=== PATIENT | male | born 1955 | race Caucasian/White ===

== ENCOUNTER 2016-07-09 11:33 | Emergency (ER) | payer OTHER, MEDICARE ==
[~2016-07-09] VITALS: Ht 162.6 cm; Wt 74.8 kg
[~2016-07-09 11:33] MED LIST: ALBUTEROL0.09 MG/A1 INH; ANORO ELLIPTA1 POW INH; ASPIRIN EC325 MG PO; ATROVENT 0.02%2.5 ML INH; DIVALPROEX SOD500 M1; FINASTERIDE5 MG PO; INVEGA9 M1 PO; INVEGA9 MG PO; LIORESAL 10MG T10 MG PO; LITHIUM CARBON300 M3 PO; LITHIUM CARBON600 MG PO; MOBIC15 MG PO; PREDNISONE 10MG10 M1 PO; PREDNISONE 20MG20 MG PO; PRILOSEC10 MG PO; PRILOSEC20 MG PO; RISPERDAL CONST25 MG; SEREVENT D0.046 MG/A; SYMBICORT 160/41 PUF INH; SYMBICORT 80/4.1 PUF INH; SYSTANE BALANCE10 ML OPH; TAMSULOSIN HYD0.4 MG PO; TESSALON PERLE100 MG PO; THIOTHIXENE10 MG PO; THIOTHIXENE2 MG PO; THIOTHIXENE5 MG PO; TRIHEXYPHENIDYL2 M1 PO; TRIHEXYPHENIDYL2 MG PO; ZITHROMAX Z-PA250 M1 PO
[2016-07-09 11:41] VITALS: BP 144/98
--- NOTE | 2016-07-09 12:26 | ED DYSPNEA/ASTHMA COMPLAINT ---
History of Present Illness General Chief Complaint: General Adult Stated Complaint: BIBA COUGHING UP BLOOD Source: patient, old records Exam Limitations: no limitations Vital Signs & Intake/Output Vital Signs & Intake/Output Vital Signs Date Time Temp Pulse Resp B/P Pulse O2 O2 Flow FiO2 Ox Delivery Rate 07/09 1305 96 Room Air 07/09 1141 99.2 110 20 144/98 94 Room Air Allergies Coded Allergies: esomeprazole (From NEXIUM) (VOMITING 08/23/15) fluphenazine (UNKNOWN 08/23/15) olanzapine (UNKNOWN 08/23/15) petrolatum,white (From PETROLEUM JELLY) (UNKNOWN REACTION TO VASELINE 08/23/15) ranitidine (From ZANTAC) (VOMITING 08/23/15) Uncoded Allergies: STOMACH (UNKNOWN 08/23/15) Reconcile Medications Amoxicillin/Potassium Clav (Augmentin 875-125 Tablet) 875 MG-125 MG TABLET 1 TAB PO BID PNA Aspirin E.c. (Ecotrin) 325 MG TAB 1 TAB PO TID PAIN/HEADACHES (Reported) Budesonide/Formoterol Fumara (Symbicort 160-4.5 Mcg Inhaler) 160 MCG/4.5 MCG PUF 2 PUF INH BID MENTAL HEALTH (Reported) Finasteride 5 MG TABLET 1 TAB PO QAM PROSTATE (Reported) Omeprazole (Prilosec) 20 MG ECC 1 CAP PO QHS GI (Reported) Paliperidone (Invega) 9 MG TAB.ER.24 1 TAB PO QAM MENTAL HEALTH (Reported) Propylene Glycol (Systane Balance 10 Ml) 0.6 % DROPS 1 DROP OPH PRN EYE LUBRICANT (Reported) TAMSULOSIN HCL (Tamsulosin Hydrochloride) 0.4 MG CAP 1 CAP PO DAILY PROSTATE (Reported) Thiothixene 2 MG CAP 1 CAP PO BID MENTAL HEALTH (Reported) Triage Note: PT STATES THE HEAT WENT OUT IN HIS APARTMENT AND NOW HE IS COUGHING UP BLOOD TINGED SPUTUM. STATES THE SIZE OF A QUARTER. STATES HIS STOMACK IS SICK AND HE HASN'T EATEN Triage Nurses Notes Reviewed? yes HPI: 61-year-old male with multiple medical problems, psychiatric history, well-known to this department for multiple visits, here with multiple medical complaints. He states that he is here because he had an episode of coughing and coughed up a quarter-sized amount of blood with sputum this morning. He has history of COPD. He denies any shortness of breath or chest pain. No History of smoking. He denies fever or flulike illness. He has no leg swelling or edema. He states that this morning he went for a walk around 7 AM and his legs were sore after the walk and he took 2 aspirin, about 2 hours after he had a coughing episode and coughed up a quarter-sized amount of blood/blood-tinged sputum. He has not had any symptoms since. He states that the coughing episode has affected him so much that he was unable to masturbate this morning. He states he masturbates every morning to promote prostate health and was unable to do so this morning. He denies any urinary symptoms. He has no history of same. Past History Travel History Traveled to [place] past 21 day No Medical History Any Pertinent Medical History? 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 No Review of Systems Review of Systems Constitutional: Reports: see HPI. EENTM: Reports: no symptoms. Respiratory: Reports: see HPI, cough, hemoptysis. Cardiovascular: Reports: no symptoms. GI: Reports: no symptoms. Genitourinary: Reports: no symptoms. Musculoskeletal: Reports: no symptoms. Skin: Reports: no symptoms. Neurological/Psychological: Reports: no symptoms. Hematologic/Endocrine: Reports: no symptoms. Immunologic/Allergic: Reports: no symptoms. All Other Systems: Reviewed and Negative Physical Exam Physical Exam Respiratory: normal breath sounds, chest non-tender, no respiratory distress Cardiovascular: regular rate/rhythm Comments: Well-developed well-nourished no apparent distress. HEENT: Atraumatic, extraocular motion intact Neck: Supple, no lymphadenopathy Back: Nontender Respiratory: No respiratory distress Extremities: No edema, full range of motion Neuro: Alert and oriented x3 Psych: Mood affect normal, normal memory normal judgment. Skin: Warm and dry, no rash on exposed skin Core Measures ACS in differential dx? No Severe Sepsis Present: No Septic Shock Present: No Progress Differential Diagnosis: asthma, AMI, altitude sickness, bronchitis, costochondritis, CHF, COPD, musculoskeletal pain, pericarditis, pulmonary embolism, pneumonia, pneumothorax, rib fracture, unstable angina Plan of Care: Orders Procedure Date/time Status XRY-CHEST XRAY, PA AND LATERAL 07/09 1217 Active Diagnostic Imaging: Viewed by Me: Radiology Read. Discussed w/RAD: Radiology Read. CXR Impression: PATIENT: OXANA JUAREZ PRESENT AGE: 61 PATIENT ACCOUNT NO: [id number] : 55 LOCATION: [facility] ORDERING PHYSICIAN: JEN HINOJOSA SERVICE DATE: 07/09/16 EXAM TYPE: RAD - XRY-CHEST XRAY, PA AND LATERAL EXAMINATION: XR CHEST CLINICAL INFORMATION: Cough, COPD. Mild bloody sputum. COMPARISON: 12/29/2015 TECHNIQUE: 2 views of the chest were obtained. FINDINGS: The lungs are hyperexpanded. There is increased opacity at the left midlung. No pleural effusion or pneumothorax. The cardiomediastinal silhouette is unchanged. Degenerative changes of the spine with kyphotic appearance of the thoracic spine. IMPRESSION: Findings consistent with known COPD. Increased left midlung opacity may represent pneumonia in this setting. 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 Given patient's history of COPD , hemoptysis, mildly elevated temperature and heart rate, I believe this is a true pneumonia and we will treat with Augmentin. This is discussed with patient. He should follow up with his primary care doctor in the next few days or return here with worsening symptoms. I do not feel he requires admission for this at this time. Departure Departure Disposition: HOME OR SELF CARE Condition: Stable Clinical Impression Primary Impression: Pneumonia Qualifiers: Pneumonia type: due to unspecified organism Laterality: left Lung location: lower lobe of lung Qualified Code: J18.1 - Lobar pneumonia, unspecified organism Referrals: AC HAYNES,JEREMY Arreola (PCP/Family) Additional Instructions: Take antibiotics for your infection as directed. Use [id number] multisystem cold medication as needed. Motrin and Tylenol as needed for fever. Drink plenty of fluids. Return or follow-up with your doctor if not better in the next 3-5 days or if you're having continued worsening fevers, nausea, vomiting, shortness of breath, abdominal pain, difficulty swallowing or drinking or worsening flulike illness. Departure Forms: Customer Survey General Discharge Information Prescriptions: Current Visit Scripts Amoxicillin/Potassium Clav (Augmentin 875-125 Tablet) 1 TAB PO BID #14 TAB Critical Care Note Critical Care Note Critical Care Time: non-applicable
--- NOTE | 2016-07-09 12:35 | RADIOLOGY REPORT ---
EXAMINATION: XR CHEST CLINICAL INFORMATION: Cough, COPD. Mild bloody sputum. COMPARISON: 12/29/2015 TECHNIQUE: 2 views of the chest were obtained. FINDINGS: The lungs are hyperexpanded. There is increased opacity at the left midlung. No pleural effusion or pneumothorax. The cardiomediastinal silhouette is unchanged. Degenerative changes of the spine with kyphotic appearance of the thoracic spine. IMPRESSION: Findings consistent with known COPD. Increased left midlung opacity may represent pneumonia in this setting.
[2016-07-09] MEDS ORDERED: AUGMENTIN 875-1 EACH PO (12:59)
== END 2016-07-09 13:05 ==
LOC: ERH 11:33
DX: J18.9 Pneumonia, unspecified organism (principal); Z87.891 Personal history of nicotine dependence

== ENCOUNTER 2016-07-31 13:35 | Emergency (ER) | payer OTHER, MEDICARE ==
[~2016-07-31] VITALS: Ht 162.6 cm; Wt 72.6 kg
[~2016-07-31 13:35] MED LIST changes: +AUGMENTIN 875-1 EACH PO
[2016-07-31 13:43] VITALS: BP 140/87
--- NOTE | 2016-07-31 15:00 | ED UPPER/LOWER EXTREMITY COMPL ---
History of Present Illness General Chief Complaint: Low Back Pain/Injury Stated Complaint: LOWER LEG PAIN Source: patient Exam Limitations: no limitations Vital Signs & Intake/Output Vital Signs & Intake/Output Vital Signs Date Time Temp Pulse Resp B/P B/P Pulse O2 O2 Flow FiO2 Mean Ox Delivery Rate 07/31 1343 97.5 86 16 140/87 94 Room Air Allergies Coded Allergies: esomeprazole (From NEXIUM) (VOMITING 08/23/15) fluphenazine (UNKNOWN 08/23/15) olanzapine (UNKNOWN 08/23/15) petrolatum,white (From PETROLEUM JELLY) (UNKNOWN REACTION TO VASELINE 08/23/15) ranitidine (From ZANTAC) (VOMITING 08/23/15) Uncoded Allergies: STOMACH (UNKNOWN 08/23/15) Reconcile Medications Amoxicillin/Potassium Clav (Augmentin 875-125 Tablet) 875 MG-125 MG TABLET 1 TAB PO BID PNA Aspirin E.c. (Ecotrin) 325 MG TAB 1 TAB PO TID PAIN/HEADACHES (Reported) Budesonide/Formoterol Fumara (Symbicort 160-4.5 Mcg Inhaler) 160 MCG/4.5 MCG PUF 2 PUF INH BID MENTAL HEALTH (Reported) Finasteride 5 MG TABLET 1 TAB PO QAM PROSTATE (Reported) Omeprazole (Prilosec) 20 MG ECC 1 CAP PO QHS GI (Reported) Paliperidone (Invega) 9 MG TAB.ER.24 1 TAB PO QAM MENTAL HEALTH (Reported) Propylene Glycol (Systane Balance 10 Ml) 0.6 % DROPS 1 DROP OPH PRN EYE LUBRICANT (Reported) TAMSULOSIN HCL (Tamsulosin Hydrochloride) 0.4 MG CAP 1 CAP PO DAILY PROSTATE (Reported) Thiothixene 2 MG CAP 1 CAP PO BID MENTAL HEALTH (Reported) Triage Note: PT TO ER VIA AMBULANCE WITH COMPLAINTS OF BILATERAL LEG PAIN. PT STATES THAT HE HAS HAD LEG PAIN SINCE HE WAS 21 AND THAT HE THOUGHT HIS DOCTOR WAS GOING TO CALL IN AN XRAY AND THAT HE TOOK THE AMBULANCE DUE TO HE HAD NO RIDE. RADIOLOGY CALLED AND CONFIRMED THAT THERE IS NO OUT PT ORDER Triage Nurses Notes Reviewed? yes Onset: Gradual Duration: worse persistent since (couple weeks) Timing: recent history Severity: moderate Severity Numbers: 6 Pain/Injury Location: Bilateral: Knee. Method of Injury: unknown No Modifying Factors: none HPI: Is a 61-year-old male with history of knee pain presenting to the emergency department to complaint of worsening knee pain over the past couple weeks. Pain is achy throbbing worse with ambulation. Hasn't taking his daily medications with little relief. He called his primary care physician and he told her to come to the emergency department for evaluation and x-rays. Denies any trauma or falls. No numbness or tingling. (MARY CIFUENTES) Past History Travel History Traveled to [place] past 21 day No Medical History Any Pertinent Medical History? 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 No (MARY CIFUENTES) Review of Systems Review of Systems Constitutional: Reports: no symptoms. Comments Review of systems: See HPI, All other systems negative. Constitutional, no chills fever or weight loss HEENT: No visual changes no sore throat no congestion Cardiovascular: No chest pain ,palpitation Skin, no jaundice no rashes Respiratory: No dyspnea cough sputum or hemoptysis GI: No nausea no vomiting : No dysuria No hematuria Muscle skeletal: no back pain, no neck pain, Neurologic: No numbness no confusion Psych: No stress anxiety or depression,. Heme/endocrine: No bruising no bleeding no polyuria or polydipsia Immunology: No splenectomy or history of AIDS (MARY CIFUENTES) Physical Exam Physical Exam General Appearance: well developed/nourished, no apparent distress, alert, awake , comfortable Comments: Well-developed well-nourished no apparent distress. HEENT: Atraumatic, extraocular motion intact Neck: normal inspection Back: Nontender Respiratory: No respiratory distress Extremities: No edema, mild tenderness to palpation over the patella tendons bilaterally. No erythema or warmth to palpation over the patellas. Full range of motion of patellas bilaterally. No pain to palpation over calf bilaterally. Pedal pulses are 2+ bilaterally. Neuro: Alert and oriented x3 Psych: Mood affect normal, normal memory normal judgment. (MARY CIFUENTES) Progress Differential Diagnosis: contusion, dislocation, fracture, gout, sprain, tendon injury, bone spur Plan of Care: Orders Procedure Date/time Status XRY-KNEE COMPLETE RIGHT 07/31 1499 Active XRY-KNEE COMPLETE LEFT 07/31 1499 Active Diagnostic Imaging: Viewed by Me: Radiology Read. Discussed w/RAD: Radiology Read. Radiology Impression: PATIENT: OXANA JUAREZ PRESENT AGE: 61 PATIENT ACCOUNT NO: [id number] : 55 LOCATION: [facility] ORDERING PHYSICIAN: MARY HINOJOSA SERVICE DATE: 07/31/16 EXAM TYPE: RAD - XRY-KNEE COMPLETE LEFT; XRY-KNEE COMPLETE RIGHT EXAMINATION: XR KNEE, LEFT XR KNEE, RIGHT CLINICAL INFORMATION: Knee pain. Rule out acute process/arthritis. COMPARISON: None TECHNIQUE: AP, lateral, and both oblique views of each knee. FINDINGS: LEFT KNEE: No fracture or malalignment. Joint spaces are well- preserved. Tiny patellar osteophytes. Enthesopathic spurring is present at the quadriceps tendon insertion on the patella and at the patellar tendon insertion on the tibia. Calcific atherosclerosis is present in the popliteal and runoff arteries. Bones are osteopenic. RIGHT KNEE: No fracture or malalignment. Tiny marginal osteophytes are present at the patella. Joint spaces well-preserved. No effusion. Bones are osteopenic. Calcific atherosclerosis is present at the popliteal artery. These right spurring is present at the quadriceps tendon insertion on the patella. IMPRESSION: 1. No acute osseous abnormalities in the knees. 2. Minimal patellofemoral degenerative arthritis. 3. Enthesopathic spurs at the quadriceps tendon insertions and at the left patellar tendon insertion. (MARY CIFUENTES) Departure Departure Time of Disposition: 155 Disposition: HOME OR SELF CARE Condition: Stable Clinical Impression Primary Impression: Arthritis Referrals: AC HAYNES,JEREMY Arreola (PCP/Family) TANGELA HAYNES,ALBER Underwood Additional Instructions: follow up with orthopedics call to make an appointment. Rest ice and elevate. Return for worsening symptoms or concerns. Continue taking daily medication as prescribed. 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 I have also reviewed all the pertinent lab results and diagnostic results. I agree with the findings and the plan of care as documented in the PA's/MODEL AND PATTERN SUPERVISOR's documentation. [X] I have reviewed the ED Record and agree with the PA's/MODEL AND PATTERN SUPERVISOR's documentation. [] Additions or exceptions (if any) to the PAs/MODEL AND PATTERN SUPERVISOR's note and plan are summarized below: [] (NAKUL HAYNES,KENA)
--- NOTE | 2016-07-31 15:38 | RADIOLOGY REPORT ---
EXAMINATION: XR KNEE, LEFT XR KNEE, RIGHT CLINICAL INFORMATION: Knee pain. Rule out acute process/arthritis. COMPARISON: None TECHNIQUE: AP, lateral, and both oblique views of each knee. FINDINGS: LEFT KNEE: No fracture or malalignment. Joint spaces are well-preserved. Tiny patellar osteophytes. Enthesopathic spurring is present at the quadriceps tendon insertion on the patella and at the patellar tendon insertion on the tibia. Calcific atherosclerosis is present in the popliteal and runoff arteries. Bones are osteopenic. RIGHT KNEE: No fracture or malalignment. Tiny marginal osteophytes are present at the patella. Joint spaces well-preserved. No effusion. Bones are osteopenic. Calcific atherosclerosis is present at the popliteal artery. These right spurring is present at the quadriceps tendon insertion on the patella. IMPRESSION: 1. No acute osseous abnormalities in the knees. 2. Minimal patellofemoral degenerative arthritis. 3. Enthesopathic spurs at the quadriceps tendon insertions and at the left patellar tendon insertion.
== END 2016-07-31 15:53 ==
LOC: ERH 13:35
DX: M17.0 Bilateral primary osteoarthritis of knee (principal)
CPT/HCPCS: 73562-LT; 73562-RT

== ENCOUNTER 2016-10-21 13:42 | Emergency (ER) | payer OTHER, MEDICARE ==
[~2016-10-21] VITALS: Ht 162.6 cm; Wt 77.1 kg
--- NOTE | 2016-10-21 15:09 | ED GENERAL ADULT ---
History of Present Illness General Chief Complaint: General Adult Stated Complaint: BIBA PER EMS HIGH BP 200/118, LIGHT HEADED Source: patient Exam Limitations: no limitations Vital Signs & Intake/Output Vital Signs & Intake/Output Vital Signs Date Time Temp Pulse Resp B/P B/P Pulse O2 O2 Flow FiO2 Mean Ox Delivery Rate 10/21 1639 98.4 84 20 130/60 99 Room Air 10/21 1348 98.6 96 18 155/84 98 Room Air Allergies Coded Allergies: esomeprazole (From NEXIUM) (VOMITING 08/23/15) fluphenazine (UNKNOWN 08/23/15) olanzapine (UNKNOWN 08/23/15) petrolatum,white (From PETROLEUM JELLY) (UNKNOWN REACTION TO VASELINE 08/23/15) ranitidine (From ZANTAC) (VOMITING 08/23/15) Uncoded Allergies: STOMACH (UNKNOWN 08/23/15) Reconcile Medications Albuterol Sulfate 2.5 MG/3 ML (0.083 %) VIAL.NEB 1 Vial INH/JACQUES Q4P PRN SOB/ WHEEZE (Reported) Albuterol Sulfate (Ventolin Hfa) 90 MCG HFA.AER.AD 2 PUF INH Q4H PRN COPD ( Reported) Amlodipine Besylate 10 MG TABLET 1 TAB PO QPM BP (Reported) Aspirin/Caffeine (Analgesic Tablet) (Unknown Strength) TABLET (Unknown Dose) PO DAILY PAIN (Reported) Benztropine Mesylate 0.5 MG TABLET 1 TAB PO QAM MENTAL HEALTH (Reported) Carboxymethylcellulos/Glycerin (Refresh Optive Eye Drops) 0.5 %-0.9 % DROPS 1 GTT OU BID BOTH EYES - DRY EYES (Reported) Finasteride 5 MG TABLET 1 TAB PO QPM PROSTATE (Reported) Haloperidol 5 MG TABLET 15 MG PO QPM MENTAL HEALTH (Reported) Ibuprofen (Motrin Ib) 200 MG TABLET 5 TAB PO PRN PAIN (Reported) Ipratropium [place] 0.2 MG/ML (0.02 %) SOLUTION 1 Vial INH/JACQUES Q4H PRN SOB/ WHEEZE (Reported) Omeprazole 20 MG CAPSULE.DR 1 CAP PO QPM GI (Reported) Tiotropium Br/Olodaterol HCl (Stiolto Respimat Inhal [place]) 2.5 MCG-2.5 MCG/ ACTUATION MIST.INHAL 2 PUFF INH DAILY COPD (Reported) Trazodone HCl 50 MG TABLET 0.5 TAB PO QHS PRN SLEEP (Reported) Triage Note: 61 YO MALE BIBA TO TRIAGE. STATES "I DID TO MUCH OVER THE WEKEEND" STATES HE WOKE UP THIS AM WITH A HEADAHCE. STATES "I POURED ICE ON MY HEAD TO TRY TO HELP" Triage Nurses Notes Reviewed? 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 Patient called EMS for persistent symptoms when he was brought in by ambulance. Patient does state that he has a history of COPD however he is not on home O2. Denies any fever chills headache neck pain neck stiffness blurred vision chest pain shortness of breath cough and arm pain jaw pain nausea vomiting leg swelling hemoptysis Patient is able to tolerate by mouth Denies any room spinning sensation. (LORRIE PEREZ) Past History Travel History Traveled to [place] past 21 day No Medical History Any Pertinent Medical History? 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 No (LORRIE PEREZ) Review of Systems Review of Systems Constitutional: Reports: see HPI, weakness. EENTM: Reports: no symptoms. Respiratory: Reports: see HPI, short of breath. Cardiovascular: Reports: no symptoms. GI: Reports: no symptoms. Genitourinary: Reports: no symptoms. Musculoskeletal: Reports: no symptoms. Skin: Reports: no symptoms. Neurological/Psychological: Reports: no symptoms. Hematologic/Endocrine: Reports: no symptoms. Immunologic/Allergic: Reports: no symptoms. All Other Systems: Reviewed and Negative (LORRIE PEREZ) Physical Exam Physical Exam General Appearance: no apparent distress, comfortable Comments: Well-developed well-nourished person in no acute distress HEENT: Normal EENT exam, extraocular motion intact, no nystagmus. Pupils equally round and reactive to light and accommodation. Nose is atraumatic. External auditory canal and Tympanic membranes clear. Pharynx normal. No swelling or edema. Neck: Supple, no lymphadenopathy, normal range of motion without pain or tenderness Back: Nontender, no CVA tenderness. Cardiovascular: Regular rate and rhythms no murmurs rubs or gallops, normal JVP Respiratory: Chest nontender. No respiratory distress.breath sounds clear to auscultation bilaterally Abdomen: Soft, nontender nondistended, no appreciable organomegaly. Normal bowel sounds. No ascites Extremity: No edema, no calf tenderness to palpation, normal and equal pulses. Neuro: Alert oriented x3, motor sensory normal, Skin: No appreciable rash on exposed skin, skin is warm and dry. Psych: Mood and affect is normal, memory and judgment is normal. Core Measures ACS in differential dx? No CVA/TIA Diagnosis: No Severe Sepsis Present: No Septic Shock Present: No (ELDA HINOJOSA,LORRIE) Progress Differential Diagnoses I considered the following diagnoses in my evaluation of the patient: [ Myocardial infarction, CVA, PE, sepsis, upper respiratory infection, dehydration , electrolyte abnormality, COPD TIA,] Plan of Care: Orders Procedure Date/time Status TROPONIN LEVEL 10/21 1517 Complete COMPREHENSIVE METABOLIC PANEL 10/21 1517 Complete CBC WITHOUT DIFFERENTIAL 10/21 1517 Complete EKG 10/21 1517 Active Laboratory Tests 10/21/16 1530: Anion Gap 13, Estimated GFR > 60, BUN/Creatinine Ratio 15.7, Glucose 94, Calcium 9.7, Total Bilirubin 0.5, AST 25, ALT 35, Alkaline Phosphatase 95, Troponin I < 0.01, Total Protein 7.6, Albumin 4.8, Globulin 2.8, Albumin/Globulin Ratio 1.7, CBC w Diff NO MAN DIFF REQ, RBC 5.11, MCV 90.9, MCH 30.4, RDW 12.8, MPV 7.2 L, Gran % 64.4, Lymphocytes % 26.3, Monocytes % 6.4, Eosinophils % 2.0, Basophils % 0.9, Absolute Granulocytes 5.2, Absolute Lymphocytes 2.1, Absolute Monocytes 0.5 , Absolute Eosinophils 0.2, Absolute Basophils 0.1, PUBS MCHC 33.5 Patient on initial examination was in no apparent distress. Patient has unremarkable physical exam findings. Clear lungs auscultation patient is noted to be ambulating to the restroom showing steady gait and no respiratory complaints. Patient has unremarkable EKG blood work and chest x-ray. Patient again was ambulating in no apparent distress no respiratory distress. It was noted that patient ambulate down the emergency room always 95% room air no respiratory distress clear lungs auscultation and was talking excessively the entire time. There is no concerns of pulmonary embolism (LORRIE PEREZ) Diagnostic Imaging: Viewed by Me: Radiology Read. CXR Impression: no acute abnormality, no infiltrates Initial ED EKG: normal intervals, normal p-waves, normal QRS complex, 82 BPM, NSR Comments: PATIENT: OXANA JUAREZ PRESENT AGE: 61 PATIENT ACCOUNT NO: [id number] : 55 LOCATION: [facility] ORDERING PHYSICIAN: LORRIE HINOJOSA SERVICE DATE: 10/21/16 EXAM TYPE: RAD - XRY-CHEST XRAY, PA AND LATERAL EXAMINATION: XR CHEST CLINICAL INFORMATION: Shortness of breath. COMPARISON: Chest radiograph 07/09/2016. TECHNIQUE: 2 views of the chest were obtained. FINDINGS: There is severe emphysema primarily involving the upper lobes of both lungs. No evidence of overt consolidative disease or effusion. No pneumothorax. The cardiac silhouette and upper mediastinal contours are normal. No acute osseous finding. IMPRESSION: Stable chronic changes with severe emphysema primarily involving the upper lobes of both lungs. No overt consolidative disease or effusion. DICTATED BY: KAYLA GUTHRIE MD DATE/TIME DICTATED:10/21/161599 (LORRIE PEREZ) Departure Departure Disposition: HOME OR SELF CARE Condition: Stable Clinical Impression Primary Impression: Dizziness Referrals: AC HAYNES,JEREMY Arreola (PCP/Family) Additional Instructions: As discussed please try to limit the use of coffee ingestion. Begin drinking plenty of water for hydration. Continue home medications as directed. If symptoms worsen or if YOU develop a NEW concerning symptom return to emergency room. Follow-up with primary care doctor on Wednesday if no better Departure Forms: Customer Survey General Discharge Information (LORRIE PEREZ) PA/DIRECTOR MEDICARE SALES Co-Sign Statement Statement: ED Attending supervision documentation- x I saw and evaluated the patient. I have also reviewed all the pertinent lab results and diagnostic results. I agree with the findings and the plan of care as documented in the PA's/DIRECTOR MEDICARE SALES's documentation. [] I have reviewed the ED Record and agree with the PA's/DIRECTOR MEDICARE SALES's documentation. [] Additions or exceptions (if any) to the PAs/DIRECTOR MEDICARE SALES's note and plan are summarized below: [] (DAVID HAYNES,MARK) Critical Care Note Critical Care Note Critical Care Time: non-applicable (ELDA HINOJOSA,LORRIE)
[2016-10-21 15:40] LABS: ABSOLUTE BASOPHIL COUNT 0.1 /CUMM (0.0-0.2); ABSOLUTE EOSINOPHIL COUNT 0.2 /CUMM (0.0-0.7); ABSOLUTE GRANULOCYTE CT 5.2 /CUMM (1.4-6.5); ABSOLUTE LYMPH COUNT 2.1 /CUMM (1.2-3.4); ABSOLUTE MONOCYTE COUNT 0.5 /CUMM (0.10-0.60); BASOPHIL % 0.9 % (0.0-2.0); GRANULOCYTE % 64.4 % (42.2-75.2); HEMATOCRIT 46.4 % (42-52); MEAN CORPUSCULAR HGB 30.4 PG (27.0-31.0); MEAN CORPUSCULAR HGB CONC 33.5 G/DL (33.0-37.0); MEAN CORPUSCULAR VOLUME 90.9 FL (80.0-94.0); MEAN PLATELET VOLUME 7.2 FL (7.4-10.4); PLATELET COUNT 253 /CUMM (130-400); RBC DISTRIBUTION WIDTH 12.8 % (11.5-14.5); RED BLOOD CELL CT 5.11 /CUMM (4.70-6.10); WHITE BLOOD CELL COUNT 8.1 /CUMM (4.8-10.8)
[2016-10-21] MEDS ORDERED: HALOPERIDOL5 MG PO (16:00)
[2016-10-21] MEDS ORDERED: REFRESH OPTIVE15 M1 OU (16:00)
[2016-10-21] MEDS ORDERED: FINASTERIDE5 M1 PO (16:01)
[2016-10-21] MEDS ORDERED: ALBUTEROL2.5 MG/3 M INH/SOL (16:01)
[2016-10-21] MEDS ORDERED: IPRATROPIU0.2 MG/1 M INH/SOL (16:01)
[2016-10-21] MEDS ORDERED: OMEPRAZOLE20 M2 PO (16:02)
[2016-10-21] MEDS ORDERED: AMLODIPINE BESY10 M1 PO (16:02)
[2016-10-21] MEDS ORDERED: TRAZODONE HCL50 M1 PO (16:02)
[2016-10-21] MEDS ORDERED: STIOLTO RESPIMAT4 GM INH (16:03)
[2016-10-21] MEDS ORDERED: VENTOLIN HFA18 GM INH (16:03)
[2016-10-21] MEDS ORDERED: BENZTROPINE ME0.5 M1 PO (16:04)
[2016-10-21] MEDS ORDERED: MOTRIN IB200 M1 PO (16:05)
--- NOTE | 2016-10-21 16:06 | RADIOLOGY REPORT ---
EXAMINATION: XR CHEST CLINICAL INFORMATION: Shortness of breath. COMPARISON: Chest radiograph 07/09/2016. TECHNIQUE: 2 views of the chest were obtained. FINDINGS: There is severe emphysema primarily involving the upper lobes of both lungs. No evidence of overt consolidative disease or effusion. No pneumothorax. The cardiac silhouette and upper mediastinal contours are normal. No acute osseous finding. IMPRESSION: Stable chronic changes with severe emphysema primarily involving the upper lobes of both lungs. No overt consolidative disease or effusion.
[2016-10-21] MEDS ORDERED: [UNRECOGNIZED DRUG - OTHER] PO (16:07)
[2016-10-21 16:39] VITALS: BP 130/60
== END 2016-10-21 16:58 ==
LOC: ERH 13:42
PROVIDERS: Physician Assistant
DX: R42 Dizziness and giddiness (principal)
CPT/HCPCS: 93005; 93010

== ENCOUNTER 2017-04-30 10:07 | Emergency (ER) | payer OTHER, MEDICARE ==
[~2017-04-30] VITALS: Ht 162.6 cm; Wt 81.6 kg
[~2017-04-30 10:07] MED LIST changes: +ALBUTEROL2.5 MG/3 M INH/SOL; +AMLODIPINE BESY10 M1 PO; +BENZTROPINE ME0.5 M1 PO; +FINASTERIDE5 M1 PO; +HALOPERIDOL5 MG PO; +IPRATROPIU0.2 MG/1 M INH/SOL; +MOTRIN IB200 M1 PO; +OMEPRAZOLE20 M2 PO; +REFRESH OPTIVE15 M1 OU; +STIOLTO RESPIMAT4 GM INH; +TRAZODONE HCL50 M1 PO; +VENTOLIN HFA18 GM INH; +[UNRECOGNIZED DRUG - OTHER] PO
[2017-04-30 10:14] VITALS: BP 133/86
--- NOTE | 2017-04-30 11:21 | ED AMS/SEIZURE/WEAK/DIZZY ---
History of Present Illness General Chief Complaint: Dizziness Stated Complaint: DIZZINESS Source: patient, old records Exam Limitations: no limitations Vital Signs & Intake/Output Vital Signs & Intake/Output Vital Signs Date Time Temp Pulse Resp B/P B/P Pulse O2 O2 Flow FiO2 Mean Ox Delivery Rate 04/30 1157 95 Room Air Room Air 04/30 1014 97.9 73 20 133/86 95 Room Air Allergies Coded Allergies: esomeprazole (From NEXIUM) (VOMITING 04/30/17) fluphenazine (UNKNOWN 04/30/17) olanzapine (UNKNOWN 04/30/17) petrolatum,white (From PETROLEUM JELLY) (UNKNOWN REACTION TO VASELINE 04/30/17) ranitidine (From ZANTAC) (VOMITING 04/30/17) Uncoded Allergies: STOMACH (UNKNOWN 08/23/15) Reconcile Medications Albuterol Sulfate 2.5 MG/3 ML (0.083 %) VIAL.NEB 1 Vial INH/JACQUES Q4P PRN SOB/ WHEEZE (Reported) Albuterol Sulfate (Ventolin Hfa) 90 MCG HFA.AER.AD 2 PUF INH Q4H PRN COPD ( Reported) Amlodipine Besylate 10 MG TABLET 1 TAB PO QPM BP (Reported) Aspirin/Caffeine (Analgesic Tablet) (Unknown Strength) TABLET (Unknown Dose) PO DAILY PAIN (Reported) Benztropine Mesylate 0.5 MG TABLET 1 TAB PO QAM MENTAL HEALTH (Reported) Carboxymethylcellulos/Glycerin (Refresh Optive Eye Drops) 0.5 %-0.9 % DROPS 1 GTT OU BID BOTH EYES - DRY EYES (Reported) Diclofenac Sodium (Voltaren) 1 % GEL..GRAM. 1 GM TOP 4 TIMES/DAY PRN KNEE PAIN apply to affected area(s) Finasteride 5 MG TABLET 1 TAB PO QPM PROSTATE (Reported) Haloperidol 5 MG TABLET 15 MG PO QPM MENTAL HEALTH (Reported) Ibuprofen (Motrin Ib) 200 MG TABLET 5 TAB PO PRN PAIN (Reported) Ipratropium [place] 0.2 MG/ML (0.02 %) SOLUTION 1 Vial INH/JACQUES Q4H PRN SOB/ WHEEZE (Reported) Lurasidone HCl (Latuda) 20 MG TABLET 1 TAB PO DAILY MENTAL HEALTH (Reported) [place]-3 Acid Ethyl Esters 1 GRAM CAPSULE 2 CAP PO BID SUPPLEMENT (Reported) Omeprazole 20 MG CAPSULE.DR 1 CAP PO QPM GI (Reported) Tiotropium Br/Olodaterol HCl (Stiolto Respimat Inhal [place]) 2.5 MCG-2.5 MCG/ ACTUATION MIST.INHAL 2 PUFF INH DAILY COPD (Reported) Trazodone HCl 50 MG TABLET 0.5 TAB PO QHS PRN SLEEP (Reported) Triage Note: PT STATES HE WAS PUT ON LATUDA 4 DAYS AGO AND HAS HAD DIZZINESS, KNEE PAIN EVER SINCE. PT DENIES CP BUT STATES SOB. PT STATES HE FEELS WEAK Triage Nurses Notes Reviewed? yes Onset: Abrupt Duration: day(s): (4), changing over time, gone now Timing: single episode today Injury Environment: home Severity: mild, moderate No Modifying Factors: none HPI: 62-year-old male past medical history of COPD and schizoaffective disorder presents for evaluation of dizziness. Patient states that he was recently placed on a new psychiatric medication latuda which he took for the first time 4 days ago. Patient states that each time after he takes the medication he will get episodes of dizziness for several hours. The symptoms only seem to last for a few hours after he takes the med and then goes away completely. He's never had this before. He continues take the medication every day. He states that he informed his psychiatrist who said that it will go away however it has not. He denies any chest pain. He does have severe COPD and reports associated shortness of breath but states that he feels like this every day. No hemoptysis or fever headache lower extremity edema. He's been eating and drinking normally. No nausea vomiting or diarrhea. He has not tried taking any medicine for his symptoms. (Karlo Jarrett) Past History Travel History Traveled to [place] past 21 day No Medical History Any Pertinent Medical History? 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 No (Karlo Jarrett) Review of Systems Review of Systems Constitutional: Reports: no symptoms. EENTM: Reports: no symptoms. Respiratory: Reports: no symptoms. Cardiovascular: Reports: no symptoms. GI: Reports: no symptoms. Genitourinary: Reports: no symptoms. Musculoskeletal: Reports: no symptoms. Skin: Reports: no symptoms. Neurological/Psychological: Reports: see HPI (dizzy). Hematologic/Endocrine: Reports: no symptoms. Immunologic/Allergic: Reports: no symptoms. All Other Systems: Reviewed and Negative (Karlo Jarrett) Physical Exam Physical Exam General Appearance: well developed/nourished, no apparent distress, alert, awake Head: atraumatic, normal appearance Eyes: Bilateral: normal appearance, PERRL, EOMI. Ears, Nose, Throat: normal pharynx, normal ENT inspection, hearing grossly normal Neck: normal inspection, supple, full range of motion, no jvd Respiratory: chest non-tender, no respiratory distress, quiet respiration, decreased breath sounds Cardiovascular: regular rate/rhythm, normal peripheral pulses Peripheral Pulses: 2+ radial (R), 2+ radial (L) Gastrointestinal: normal bowel sounds, soft, non-tender, no organomegaly Back: normal inspection, normal range of motion Extremities: normal range of motion Neurologic/Psych: no motor/sensory deficits, awake, alert, oriented x 3, normal gait, cerebellar testing is within normal limits Skin: intact, normal color, warm/dry Lymphatic: no anterior cervical holly Core Measures ACS in differential dx? No CVA/TIA Diagnosis No Sepsis Present: No Sepsis Focused Exam Completed? No (Karlo Jarrett) Progress Differential Diagnosis: arrythmia, anemia, benign positional vertigo, dehydration, electrolyte imbalance, hypoglycemia, migraine [place], pneumonia, presyncope, UTI/pyelo Plan of Care: Orders Procedure Date/time Status Add-on Test (ER Only) 04/30 1121 Active URINALYSIS 04/30 1121 Complete EKG 04/30 1121 Active TSH REFLEX 04/30 1114 Complete TROPONIN LEVEL 04/30 1114 Complete MAGNESIUM 04/30 1114 Complete COMPREHENSIVE METABOLIC PANEL 04/30 1013 Complete CBC WITHOUT DIFFERENTIAL 04/30 1013 Complete Laboratory Tests 04/30/17 1256: Urine Color STRAW, Urine Clarity CLEAR, Urine pH 6.0, Ur Specific [place] <= 1.005, Urine Protein NEG, Urine Ketones NEG, Urine Nitrite NEG, Urine Bilirubin NEG, Urine Urobilinogen 0.2, Ur Leukocyte Esterase NEG, Ur Microscopic EXAM NOT REQUIRED, Urine Hemoglobin NEG, Urine Glucose NEG 04/30/17 1114: Anion Gap 14, Estimated GFR > 60, BUN/Creatinine Ratio 17.1, Glucose 105 H, Calcium 9.3, Magnesium 1.7, Total Bilirubin 0.6, AST 31, ALT 33, Alkaline Phosphatase 96, Troponin I < 0.01, Total Protein 7.5, Albumin 4.5, Globulin 3.0, Albumin/Globulin Ratio 1.5, TSH &T3 &Free T4 Intrp 1.670, CBC w Diff NO MAN DIFF REQ, RBC 5.24, MCV 89.7, MCH 30.3, RDW 12.3, MPV 7.5, Gran % 62.3, Lymphocytes % 26.2, Monocytes % 8.5, Eosinophils % 2.0, Basophils % 1.0, Absolute Granulocytes 4.1, Absolute Lymphocytes 1.7, Absolute Monocytes 0.6, Absolute Eosinophils 0.1, Absolute Basophils 0.1, PUBS MCHC 33.8 Patient seen and evaluated. He reports episodes of dizziness after taking a new medication that last for several hours and then go away. Currently he is feeling well and has no concerns. Bloodwork is within normal limits his EKG is stable chest x-ray is stable. Advised patient to rest and plenty of fluids and make a follow-up with a psychiatrist for further evaluation. Continue to take medication unless directed to do so. Patient is nontoxic-appearing and agrees the plan. Diagnostic Imaging: Viewed by Me: Radiology Read. Discussed w/RAD: Radiology Read. CXR Impression: PATIENT: OXANA JUAREZ PRESENT AGE: 62 PATIENT ACCOUNT NO: [id number] : 55 LOCATION: [facility] ORDERING PHYSICIAN: Karlo HINOJOSA SERVICE DATE: 04/30/17 EXAM TYPE: RAD - XRY-CHEST XRAY, TWO VIEWS EXAMINATION: XR CHEST CLINICAL INFORMATION: Cough, shortness of breath and COPD. COMPARISON: Chest x-ray 12/18/2016 TECHNIQUE: 2 views of the chest were obtained. FINDINGS: Cardiac silhouette is normal in size. The lungs are hyperinflated. Oligemia particularly within the left upper lobe is most consistent with a bulla. No lobar consolidation or pleural effusion. Diffuse degenerative changes of the spine with exaggerated kyphosis. IMPRESSION: Again noted are severe emphysematous changes of the lungs. No lobar consolidation appreciated. DICTATED BY: Shawn Loza MD DATE/TIME DICTATED:04/30/171237 FARROWING MANAGER:NORY DATE/TIME TRANSCRIBED:04/30/171237 CONFIDENTIAL, DO NOT COPY WITHOUT APPROPRIATE AUTHORIZATION. Initial ED EKG: nonspecific ST T wave chg, NORMAL SINUS RHYTHM, LEFT ANTERIOR FASCICULAR BLOCK, LOW VOLTAGE IN FRONTAL LEADS Prior EKG: unchanged (Karlo Jarrett) Departure Departure Disposition: HOME OR SELF CARE Condition: Stable Clinical Impression Primary Impression: Medication side effect Qualifiers: Encounter type: initial encounter Qualified Code: T88.7XXA - Unspecified adverse effect of drug or medicament, initial encounter Referrals: Shweta Bhat MD (PCP/Family) Additional Instructions: Continue to take all medications as directed. Make a follow-up with your psychiatrist as soon as possible to address medication side effects. Tylenol can be used as needed for pain. Voltaren gel can be applied topically for knee pain. Monitor symptoms return with any concerns. Departure Forms: Customer Survey General Discharge Information Prescriptions: Current Visit Scripts Diclofenac Sodium (Voltaren) 1 GM TOP 4 TIMES/DAY PRN KNEE PAIN #1 TUBE apply to affected area(s) (Karlo Jarrett) PA/REIMBURSEMENT DIRECTOR Co-Sign Statement Statement: ED Attending supervision documentation- [] I saw and evaluated the patient. I have also reviewed all the pertinent lab results and diagnostic results. I agree with the findings and the plan of care as documented in the PA's/REIMBURSEMENT DIRECTOR's documentation. [X] I have reviewed the ED Record and agree with the PA's/REIMBURSEMENT DIRECTOR's documentation. [] Additions or exceptions (if any) to the PAs/REIMBURSEMENT DIRECTOR's note and plan are summarized below: [] (Garrison Pulido DO) ED Attending Observation Initial Observation Note: I have seen and personally examined OXANA JUAREZ on 05/03/17 at 1123. I agree with the current emergency department documentation. The disposition (admission or discharge) is uncertain at this time, he needs a period of observation for the following reason(s): The ED Nurse caring for this patient has been personally informed as to what the patient is being observed for. (Joss Jarrettic)
[2017-04-30 11:30] LABS: ABSOLUTE BASOPHIL COUNT 0.1 /CUMM (0.0-0.2); ABSOLUTE EOSINOPHIL COUNT 0.1 /CUMM (0.0-0.7); ABSOLUTE GRANULOCYTE CT 4.1 /CUMM (1.4-6.5); ABSOLUTE LYMPH COUNT 1.7 /CUMM (1.2-3.4); ABSOLUTE MONOCYTE COUNT 0.6 /CUMM (0.10-0.60); GRANULOCYTE % 62.3 % (42.2-75.2); MEAN CORPUSCULAR HGB 30.3 PG (27.0-31.0); MEAN CORPUSCULAR HGB CONC 33.8 G/DL (33.0-37.0); MEAN CORPUSCULAR VOLUME 89.7 FL (80.0-94.0); MEAN PLATELET VOLUME 7.5 FL (7.4-10.4); PLATELET COUNT 225 /CUMM (130-400); RBC DISTRIBUTION WIDTH 12.3 % (11.5-14.5); RED BLOOD CELL CT 5.24 /CUMM (4.70-6.10); WHITE BLOOD CELL COUNT 6.6 /CUMM (4.8-10.8)
[2017-04-30] MEDS ORDERED: LATUDA20 M1 PO (11:49)
[2017-04-30] MEDS ORDERED: OMEGA-3 ACID ETH1 GM PO (11:50)
--- NOTE | 2017-04-30 12:44 | RADIOLOGY REPORT ---
EXAMINATION: XR CHEST CLINICAL INFORMATION: Cough, shortness of breath and COPD. COMPARISON: Chest x-ray 12/18/2016 TECHNIQUE: 2 views of the chest were obtained. FINDINGS: Cardiac silhouette is normal in size. The lungs are hyperinflated. Oligemia particularly within the left upper lobe is most consistent with a bulla. No lobar consolidation or pleural effusion. Diffuse degenerative changes of the spine with exaggerated kyphosis. IMPRESSION: Again noted are severe emphysematous changes of the lungs. No lobar consolidation appreciated.
[2017-04-30] MEDS ORDERED: VOLTAREN100 GM TOP (13:34)
== END 2017-04-30 13:57 ==
LOC: ERH 10:07
PROVIDERS: Physician Assistant Medical
DX: T50.995A Adverse effect of other drugs, medicaments and biological substances, initial encounter (principal); R42 Dizziness and giddiness
CPT/HCPCS: 71046; 81003; 93005; 93010

== ENCOUNTER 2017-06-16 20:19 | Emergency (ER) | payer OTHER, MEDICARE ==
[~2017-06-16 20:19] MED LIST changes: +LATUDA20 M1 PO; +OMEGA-3 ACID ETH1 GM PO; +VOLTAREN100 GM TOP
[2017-06-16 20:24] VITALS: BP 141/80
--- NOTE | 2017-06-16 20:29 | ED NECK/BACK PAIN COMPLAINT ---
History of Present Illness General Chief Complaint: General Adult Stated Complaint: MID TO LOWER BACK PAIN AND R HAND NUMB Source: patient, old records Exam Limitations: no limitations Vital Signs & Intake/Output Vital Signs & Intake/Output Vital Signs Date Time Temp Pulse Resp B/P B/P Pulse O2 O2 Flow FiO2 Mean Ox Delivery Rate 06/17 2023 82 16 141/80 95 Room Air Allergies Coded Allergies: esomeprazole (From NEXIUM) (VOMITING 04/30/17) fluphenazine (UNKNOWN 04/30/17) olanzapine (UNKNOWN 04/30/17) petrolatum,white (From PETROLEUM JELLY) (UNKNOWN REACTION TO VASELINE 04/30/17) ranitidine (From ZANTAC) (VOMITING 04/30/17) Uncoded Allergies: STOMACH (UNKNOWN 08/23/15) Reconcile Medications Albuterol Sulfate 2.5 MG/3 ML (0.083 %) VIAL.NEB 1 Vial INH/JACQUES Q4P PRN SOB/ WHEEZE (Reported) Albuterol Sulfate (Ventolin Hfa) 90 MCG HFA.AER.AD 2 PUF INH Q4H PRN COPD ( Reported) Amlodipine Besylate 10 MG TABLET 1 TAB PO QPM BP (Reported) Aspirin/Caffeine (Analgesic Tablet) (Unknown Strength) TABLET (Unknown Dose) PO DAILY PAIN (Reported) Benztropine Mesylate 0.5 MG TABLET 1 TAB PO QAM MENTAL HEALTH (Reported) Carboxymethylcellulos/Glycerin (Refresh Optive Eye Drops) 0.5 %-0.9 % DROPS 1 GTT OU BID BOTH EYES - DRY EYES (Reported) Diclofenac Sodium (Voltaren) 1 % GEL..GRAM. 1 GM TOP 4 TIMES/DAY PRN KNEE PAIN apply to affected area(s) Finasteride 5 MG TABLET 1 TAB PO QPM PROSTATE (Reported) Haloperidol 5 MG TABLET 15 MG PO QPM MENTAL HEALTH (Reported) Ibuprofen (Motrin Ib) 200 MG TABLET 5 TAB PO PRN PAIN (Reported) Ipratropium [place] 0.2 MG/ML (0.02 %) SOLUTION 1 Vial INH/JACQUES Q4H PRN SOB/ WHEEZE (Reported) Lurasidone HCl (Latuda) 20 MG TABLET 1 TAB PO DAILY MENTAL HEALTH (Reported) [place]-3 Acid Ethyl Esters 1 GRAM CAPSULE 2 CAP PO BID SUPPLEMENT (Reported) Omeprazole 20 MG CAPSULE.DR 1 CAP PO QPM GI (Reported) Tiotropium Br/Olodaterol HCl (Stiolto Respimat Inhal [place]) 2.5 MCG-2.5 MCG/ ACTUATION MIST.INHAL 2 PUFF INH DAILY COPD (Reported) Trazodone HCl 50 MG TABLET 0.5 TAB PO QHS PRN SLEEP (Reported) Triage Note: PT BIBA FROM HOME C/O LOWER BACK PAIN. PT REPORTS "TWO DAYS AGO I WAS RUSHING TO GO TO THE BATHROOM AND SAT ON THE TOILET TOO HARD". PT DENIES PAIN AT THIS TIME. AMBULATORY WITHOUT DIFFICULTY AND WITH STEADY GAIT. AMBULATES WITH A CANE AT HOME. Triage Nurses Notes Reviewed? yes Onset: Gradual Duration: day(s): Timing: recent history Quality/Severity: moderate Location: T-spine HPI: 62yo male with hx of COPD and schizoaffective disorder BIBA complaining of mid back pain since yesterday. Patient states that he was rushing to use the bathroom and sat down on the toilet seat hard and experienced mid back pain bilaterally. Patient states that this happened again today, back pain is persistent. Patient states that today when he laid down he was lying on his right arm and experienced numbness from the elbow down to hand and all fingers. Patient states that numbness is persistent still. The patient denies recent fall or head trauma, visual changes, abdominal pain. (Kelly Wu) Past History Travel History Traveled to [place] past 21 day No Medical History Any Pertinent Medical History? 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 No (Kelly Wu) Review of Systems Review of Systems Constitutional: Reports: no symptoms. Eyes: Reports: no symptoms. Ears, Nose, Throat, Mouth: Reports: no symptoms. Respiratory: Reports: no symptoms. Cardiovascular: Reports: no symptoms. Gastrointestinal/Abdominal: Reports: no symptoms. Musculoskeletal: Reports: see HPI. Skin: Reports: no symptoms. Neurological/Psychological: Reports: see HPI. All Other Systems: Reviewed and Negative (Izabel HINOJOSA,Kelly Sandhu) Physical Exam Physical Exam General Appearance: well developed/nourished, no apparent distress, alert, awake Head: atraumatic, normal appearance Eyes: Bilateral: normal appearance. 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 Discussed w/RAD: Radiology Read. Hand-Off Endorsed To: Sandra Smallwood MD Endorsed Time: 2140 Pending: Xray (Izabel HINOJOSA,Kelly Sandhu) Plan of Care: Orders Procedure Date/time Status XRY-THORACIC SPINE 06/16 2038 Active XRY-CHEST XRAY, TWO VIEWS 06/16 2038 Active The patient is neurologically intact, upper extremity sensation is intact. Strength is equal bilaterally to upper and lower extremity. There is no focal neurologic deficit. X-rays are pending. The patient is ambulatory here in the emergency department without difficulty. The patient was signed out to Dr. Smallwood pending x-ray results. (Kelly Wu) Radiology Impression: PATIENT: OXANA JUAREZ PRESENT AGE: 62 PATIENT ACCOUNT NO: [id number] : 55 LOCATION: [facility] ORDERING PHYSICIAN: Kelly HINOJOSA SERVICE DATE: 06/16/17-2038 EXAM TYPE: RAD - XRY-THORACIC SPINE EXAMINATION: XR THORACIC SPINE CLINICAL INFORMATION: Mid back pain. Concern for malignant fracture. COMPARISON: Chest x-ray 06/16/2017. 2017 TECHNIQUE: 3 views of the thoracic spine were obtained. FINDINGS: There is no acute fracture. No focal bone destruction. There is kyphosis of the dorsal spine with multilevel endplate spurring and disc height narrowing. Compared to prior chest x-ray 04/30/2017 is been no change. IMPRESSION: No acute abnormality. No fracture. Degenerative spondylosis of dorsal spine. DICTATED BY: Trung Reyez MD DATE/TIME DICTATED:06/16/172156 ONLINE MEDIA DIRECTOR:NORY DATE/TIME TRANSCRIBED:06/16/172156 CONFIDENTIAL, DO NOT COPY WITHOUT APPROPRIATE AUTHORIZATION. <Electronically signed in Other Vendor System> SIGNED BY: Trung Reyez MD 06/16/172202 CXR Impression: PATIENT: OXANA JUAREZ PRESENT AGE: 62 PATIENT ACCOUNT NO: [id number] : 55 LOCATION: [facility] ORDERING PHYSICIAN: Kelly HINOJOSA SERVICE DATE: 06/16/17 EXAM TYPE: RAD - XRY-CHEST XRAY, TWO VIEWS EXAMINATION: XR CHEST CLINICAL INFORMATION: Bilateral rib pain. Concern for rib fracture or pneumothorax. COMPARISON: Chest x-ray 04/30/2017. TECHNIQUE: 2 views of the chest were obtained. FINDINGS: There is marked emphysematous changes of lungs. Large blebs at lung apices. There is no pneumothorax. No focal infiltrate. No pulmonary vascular congestion. There is chronic blunting of the posterior costophrenic angles bilateral unchanged since prior chest x-ray. May be pleural thickening or small pleural effusion. Heart size is normal. The cardiac and the mediastinal contours are normal. No displaced rib fracture. Degenerative spondylosis of dorsal spine with kyphosis. IMPRESSION: 1. No acute abnormality. 2. Marked emphysematous changes of lung. No pneumothorax. No change since prior chest x-ray 04/30/2017. DICTATED BY: Trung Reyez MD DATE/TIME DICTATED:06/16/172199 ONLINE MEDIA DIRECTOR:NORY DATE/ TIME TRANSCRIBED:06/16/172199 CONFIDENTIAL, DO NOT COPY WITHOUT APPROPRIATE AUTHORIZATION. <Electronically signed in Other Vendor System> SIGNED BY: Trung Reyez MD 06/16/172205 (Sandra Smallwood MD) Departure Departure Condition: Stable Referrals: Perlita HAYNES,Shweta Arreola (PCP/Family) Additional Instructions: Follow-up with your primary care doctor as scheduled. Take Tylenol as prescribed as needed for pain. Rest, no increasing activity, no heavy lifting. Return for worsening symptoms or concerns. Follow-up with your primary care physician this week. Contact them to let them know you were here in the emergency room. Return to the emergency room at any time sooner if you have worsening of your symptoms or any other concerns. Please note that there might be incidental findings in your evaluation that are unrelated to the current emergency department visit. Please notify your primary care doctor about this emergency department visit in order to obtain and review all of the testing performed so that these incidental findings can be monitored as needed. If you were prescribed a narcotic use caution as this medication is highly addictive and may make you feel lightheaded,dizzy or drowsy. These can make you constipated. Use for breakthrough pain only. No driving, drinking alcohol or operating machinary when taking. If you had an x-ray performed, please understand that some fractures may not be seen on the initial set of x-rays. If your symptoms persist you might need a repeat set of x-rays to check for such a fracture. If you had a laceration evaluated, please understand that foreign bodies such as glass or wood may not be visible to the naked eye or on plain x-rays. If the wound becomes red, swollen, increasingly more painful or if there is any drainage from the wound, please have it reevaluated by a physician for the possibility of a retained foreign body. Departure Forms: Customer Survey General Discharge Information (Izabel HINOJOSA,Kelly Sandhu) Departure Time of Disposition: 2209 Disposition: HOME OR SELF CARE Clinical Impression Primary Impression: Back pain Qualifiers: Back pain location: thoracic back pain Chronicity: acute Back pain laterality: unspecified Qualified Code: M54.6 - Pain in thoracic spine Secondary Impressions: Degenerative disc disease, lumbar, Paresthesia (Cl HAYNES,Sandra)
--- NOTE | 2017-06-16 22:03 | RADIOLOGY REPORT ---
EXAMINATION: XR THORACIC SPINE CLINICAL INFORMATION: Mid back pain. Concern for malignant fracture. COMPARISON: Chest x-ray 06/16/2017. 04/30/2017 TECHNIQUE: 3 views of the thoracic spine were obtained. FINDINGS: There is no acute fracture. No focal bone destruction. There is kyphosis of the dorsal spine with multilevel endplate spurring and disc height narrowing. Compared to prior chest x-ray 04/30/2017 is been no change. IMPRESSION: No acute abnormality. No fracture. Degenerative spondylosis of dorsal spine.
--- NOTE | 2017-06-16 22:06 | RADIOLOGY REPORT ---
EXAMINATION: XR CHEST CLINICAL INFORMATION: Bilateral rib pain. Concern for rib fracture or pneumothorax. COMPARISON: Chest x-ray 04/30/2017. TECHNIQUE: 2 views of the chest were obtained. FINDINGS: There is marked emphysematous changes of lungs. Large blebs at lung apices. There is no pneumothorax. No focal infiltrate. No pulmonary vascular congestion. There is chronic blunting of the posterior costophrenic angles bilateral unchanged since prior chest x-ray. May be pleural thickening or small pleural effusion. Heart size is normal. The cardiac and the mediastinal contours are normal. No displaced rib fracture. Degenerative spondylosis of dorsal spine with kyphosis. IMPRESSION: 1. No acute abnormality. 2. Marked emphysematous changes of lung. No pneumothorax. No change since prior chest x-ray 04/30/2017.
== END 2017-06-16 22:26 ==
LOC: ERH 20:19
DX: M51.36 Other intervertebral disc degeneration, lumbar region (principal)
CPT/HCPCS: 71046; 72070

== ENCOUNTER 2017-06-30 19:31 | Emergency (ER) | payer OTHER, MEDICARE ==
[~2017-06-30] VITALS: Ht 162.6 cm; Wt 81.6 kg
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
[2017-06-30 20:34] LABS: ABSOLUTE BASOPHIL COUNT 0 /CUMM (0.0-0.2); ABSOLUTE EOSINOPHIL COUNT 0.4 /CUMM (0.0-0.7); ABSOLUTE LYMPH COUNT 2.7 /CUMM (1.2-3.4); ABSOLUTE MONOCYTE COUNT 0.7 /CUMM (0.10-0.60); BASOPHIL % 0.7 % (0.0-2.0); EOSINOPHIL % 5.8 % (0-5); GRANULOCYTE % 43.5 % (42.2-75.2); HEMATOCRIT 44.7 % (42-52); MEAN CORPUSCULAR HGB 30.5 PG (27.0-31.0); MEAN CORPUSCULAR HGB CONC 33.4 G/DL (33.0-37.0); MEAN CORPUSCULAR VOLUME 91.1 FL (80.0-94.0); MEAN PLATELET VOLUME 8.3 FL (7.4-10.4); PLATELET COUNT 222 /CUMM (130-400); RBC DISTRIBUTION WIDTH 12.4 % (11.5-14.5); RED BLOOD CELL CT 4.91 /CUMM (4.70-6.10); WHITE BLOOD CELL COUNT 6.8 /CUMM (4.8-10.8)
--- NOTE | 2017-06-30 20:45 | RADIOLOGY REPORT ---
EXAMINATION: XR CHEST CLINICAL INFORMATION: 62-year-old male patient with chest pain and shortness of breath. COMPARISON: Chest x-ray 06/16/2017. (Emphysema). TECHNIQUE: PA and lateral erect views of the chest. FINDINGS: Reexamination shows severe emphysema concentrated in both upper lobes. There is no evidence of acute pulmonary disease. There are trace bilateral pleural effusions. They've increased since 06/16/2017. IMPRESSION: Severe emphysema. No pneumonia. Trace bilateral pleural effusions unchanged.
[2017-06-30 21:43] VITALS: BP 128/82
== END 2017-06-30 21:48 ==
LOC: ERH 19:31
PROVIDERS: Emergency Medicine
DX: R07.9 Chest pain, unspecified (principal); R10.13 Epigastric pain
CPT/HCPCS: 71046; 81003; 93005; 93010

== ENCOUNTER 2017-08-26 12:24 | Emergency (ER) | payer OTHER, MEDICARE ==
[~2017-08-26] VITALS: Ht 162.6 cm; Wt 77.1 kg
[2017-08-26 12:29] VITALS: BP 145/81
--- NOTE | 2017-08-26 13:42 | ED GENERAL ADULT ---
History of Present Illness General Chief Complaint: General Adult Stated Complaint: "MY BLOOD PRESSURE IS UP" Source: patient, old records Exam Limitations: no limitations Vital Signs & Intake/Output Vital Signs & Intake/Output Vital Signs Date Time Temp Pulse Resp B/P B/P Pulse O2 O2 Flow FiO2 Mean Ox Delivery Rate 08/26 1229 97.1 75 18 145/81 95 Room Air Allergies Coded Allergies: esomeprazole (From NEXIUM) (VOMITING 06/30/17) fluphenazine (UNKNOWN 06/30/17) olanzapine (UNKNOWN 06/30/17) petrolatum,white (From PETROLEUM JELLY) (UNKNOWN REACTION TO VASELINE 06/30/17) ranitidine (From ZANTAC) (VOMITING 06/30/17) Uncoded Allergies: STOMACH (UNKNOWN 08/23/15) Reconcile Medications Albuterol Sulfate 2.5 MG/3 ML (0.083 %) VIAL.NEB 1 Vial INH/JACQUES Q4P PRN SOB/ WHEEZE (Reported) Albuterol Sulfate (Ventolin Hfa) 90 MCG HFA.AER.AD 2 PUF INH Q4H PRN COPD ( Reported) Amlodipine Besylate 10 MG TABLET 1 TAB PO QPM BP (Reported) Aspirin/Caffeine (Analgesic Tablet) (Unknown Strength) TABLET (Unknown Dose) PO DAILY PAIN (Reported) Benztropine Mesylate 0.5 MG TABLET 1 TAB PO QAM MENTAL HEALTH (Reported) Carboxymethylcellulos/Glycerin (Refresh Optive Eye Drops) 0.5 %-0.9 % DROPS 1 GTT OU BID BOTH EYES - DRY EYES (Reported) Diclofenac Sodium (Voltaren) 1 % GEL..GRAM. 1 GM TOP 4 TIMES/DAY PRN KNEE PAIN apply to affected area(s) Finasteride 5 MG TABLET 1 TAB PO QPM PROSTATE (Reported) Haloperidol 5 MG TABLET 15 MG PO QPM MENTAL HEALTH (Reported) Ibuprofen (Motrin Ib) 200 MG TABLET 5 TAB PO PRN PAIN (Reported) Ipratropium Stewart 0.2 MG/ML (0.02 %) SOLUTION 1 Vial INH/JACQUES Q4H PRN SOB/ WHEEZE (Reported) Lurasidone HCl (Latuda) 20 MG TABLET 1 TAB PO DAILY MENTAL HEALTH (Reported) Bomoseen-3 Acid Ethyl Esters 1 GRAM CAPSULE 2 CAP PO BID SUPPLEMENT (Reported) Omeprazole 20 MG CAPSULE.DR 1 CAP PO QPM GI (Reported) Tiotropium Br/Olodaterol HCl (Stiolto Respimat Inhal [place]) 2.5 MCG-2.5 MCG/ ACTUATION MIST.INHAL 2 PUFF INH DAILY COPD (Reported) Trazodone HCl 50 MG TABLET 0.5 TAB PO QHS PRN SLEEP (Reported) Triage Note: PT BIBA: TO ER C/C 30 MIN HX OF FRONTAL HEAD PRESSURE, STATES "I KNOW MY BLOOD PRESSURE IS UP". DENIES MISSING DOSE OF PRESCRIBED ANTIHYPERTENSIVES. BP IN TRIAGE 145/81 Triage Nurses Notes Reviewed? yes HPI: Patient called the ambulance because the air quality in his apartment was bad. Patient denies any shortness of breath. There is no coughing. There is no chest pain. In the ambulance he was told that his blood pressure was elevated. Patient is currently feeling better since he is out of his apartment. Patient denies any headache or blurry vision. There is no nausea or vomiting. Patient' s blood pressure is normal in the emergency department. Past History Travel History Traveled to [place] past 21 day No Medical History Any Pertinent Medical History? see below for history Neurological: NONE EENT: NONE Cardiovascular: NONE Respiratory: COPD Gastrointestinal: GERD, hiatal hernia, GALLSTONES Hepatic: NONE Renal: NONE Musculoskeletal: leg pain Psychiatric: schizo affective disorder Endocrine: NONE Blood Disorders: NONE Cancer(s): NONE [employer] LANGUAGES/Reproductive: NONE Surgical History Surgical History: non-contributory Psychosocial History Who do you live with Patient/Self Services at Home None What is your primary language Nepalese Tobacco Use: Quit >30 days ago ETOH Use: denies use Illicit Drug Use: denies illicit drug use Family History Hx Contributory? No Review of Systems Review of Systems Constitutional: Reports: no symptoms. EENTM: Reports: no symptoms. Respiratory: Reports: see HPI. Cardiovascular: Reports: no symptoms. GI: Reports: no symptoms. Musculoskeletal: Reports: no symptoms. Neurological/Psychological: Reports: no symptoms. Physical Exam Physical Exam General Appearance: well developed/nourished, alert, awake Head: atraumatic, normal appearance Eyes: Bilateral: PERRL, EOMI. Ears, Nose, Throat: normal pharynx, normal ENT inspection, hearing grossly normal Neck: normal inspection, supple, full range of motion Respiratory: normal breath sounds, chest non-tender, no respiratory distress, lungs clear Cardiovascular: regular rate/rhythm, normal peripheral pulses Gastrointestinal: normal bowel sounds, soft, non-tender, no organomegaly Back: normal inspection, normal range of motion Neurologic/Psych: no motor/sensory deficits, awake, alert, oriented x 3, normal gait, normal mood/affect Skin: intact, normal color, warm/dry Core Measures ACS in differential dx? No CVA/TIA Diagnosis: No Sepsis Present: No Sepsis Focused Exam Completed? No Progress Differential Diagnoses I considered the following diagnoses in my evaluation of the patient: [ Hypertension, anxiety] Plan of Care: Patient is stable for discharge Initial ED EKG: none Departure Departure Disposition: HOME OR SELF CARE Condition: Stable Clinical Impression Primary Impression: Elevated blood pressure reading Referrals: Perlita HAYNES,Shewta Arreola (PCP/Family) Additional Instructions: RETURN IF SYMPTOMS WORSEN OR FOR ANY CONCERNS Departure Forms: Customer Survey General Discharge Information Critical Care Note Critical Care Note Critical Care Time: non-applicable
== END 2017-08-26 13:42 ==
LOC: ERH 12:24
DX: I10 Essential (primary) hypertension (principal)